=== PATIENT | male | born 1975 | race Caucasian/White ===

== ENCOUNTER → 2023-01-14 | Outpatient (CLI) | payer OTHER | LOC: M RAD 08:08 | PROVIDERS: ATTEND Nurse Practitioner Family | DX: R94.5 Abnormal results of liver function studies (principal) ==

== ENCOUNTER → 2023-02-17 | Outpatient (CLI) | payer OTHER | LOC: M SLEEP 20:00 | PROVIDERS: ATTEND Nurse Practitioner Family | DX: G47.33 Obstructive sleep apnea (adult) (pediatric) (principal) ==

== ENCOUNTER 2023-06-25 09:17 | Day surgery (SDC) | payer OTHER ==
[~2023-06-25] VITALS: Ht 167.6 cm; Wt 132.5 kg
[~2023-06-25 09:17] MED LIST: CHLO50TA PO; LOSA100T46 PO; METO200T28 PO
[2023-06-25] MEDS: NS 1,000 ML IV ONE (10:04)
[2023-06-25 11:59] VITALS: BP 136/84; TEMP 97.3; O2SAT 96
== END 2023-06-25 10:50 | disposition home or self-care (01) ==
LOC: M OPP 09:17
PROVIDERS: ATTEND Surgery
DX: D12.6 Benign neoplasm of colon, unspecified (principal); K63.5 Polyp of colon; R19.5 Other fecal abnormalities; Z87.891 Personal history of nicotine dependence; G47.30 Sleep apnea, unspecified; Z99.89 Dependence on other enabling machines and devices; Z79.899 Other long term (current) drug therapy